=== PATIENT | male | born 1960 | race Caucasian/White ===

== ENCOUNTER → 2017-11-08 | Outpatient (CLI) | payer OTHER ==
[2017-11-08 18:42] LABS: CHOLESTEROL/HDL RATIO 2.9
== END | disposition home or self-care (01) ==
LOC: C.LAB 16:58
PROVIDERS: ATTEND Psychiatry & Neurology Psychiatry
DX: F20.0 Paranoid schizophrenia (principal); Z79.899 Other long term (current) drug therapy

== ENCOUNTER 2018-03-29 16:07 | Emergency (ER) | payer OTHER ==
[2018-03-29] VITALS (10 sets, daily range): BP systolic 107–130; BP diastolic 60–82; PULSE 75–93; TEMP 36.7–37.1; O2SAT 95–97; Ht 175.3 cm; Wt 82.8 kg
[~2018-03-29] VITALS: Ht 175.3 cm; Wt 82.8 kg
--- NOTE | 2018-03-29 16:43 | EMERGENCY ROOM VISIT NOTE ---
History Report prepared by Shabnam: Jackie Gunter Under the Supervision of: Vick GutierrezO. First contact with patient: 16:23 Chief Complaint: OTHER COMPLAINT Stated Complaint: SWELLING TO FEET, ABNORMAL LABS History of Present Illness The patient is a 57 year old male who presents to the Emergency Room with complaints of persistent abnormal labs that started earlier today. He notes he saw his doctor and had blood work done. He reports he was told that his labs were abnormal so he came here. He also reports intermittent lower extremity edema that started 1 year ago. It has been more persistent that past 2-3 weeks. The patient reports he also has shortness of breath on exertion that started 1 month ago. The patient is anemic. He denies any black stool but he states it has been darker. He reports he has been taking iron supplements. The patient has a history of paranoid schizophrenia, OCD, and depression. He notes he was a previous smoker and he drinks alcohol on occasion. Source of History: patient Onset: earlier today Position: other (abnomal labs) Timing: other (persistent) Associated Symptoms: + SOB Note: Additional symptoms: lower extremity edema, darker stools. Review of Systems See HPI for pertinent positives & negatives. A total of 10 systems reviewed and were otherwise negative. Past Medical & Surgical Medical Problems: (1) Paranoid schizophrenia Family History No pertinent family history Social History Drug Use: none Marital Status: single Current/Historical Medications Scheduled Aripiprazole (Abilify), 1 TAB PO DAILY Ascorbic Acid (Vitamin C), 1 TAB PO DAILY Bupropion (Wellbutrin Sr), 150 MG PO DAILY Ferrous Sulfate (Iron), 1 TAB PO DAILY Fluvoxamine Maleate (Luvox), 50 MG PO DAILY Multiple Vitamin (One-A-Day Mens), 1 TAB PO DAILY Allergies Coded Allergies: No Known Allergies (Unverified , 03/29/18) Physical Exam Vital Signs Date Time Temp Pulse Resp B/P (MAP) Pulse Ox O2 Delivery O2 Flow Rate FiO2 03/29/18 22:46 37.1 72 21 108/72 96 Room Air 03/29/18 22:35 36.7 75 16 117/75 97 03/29/18 22:05 37.0 88 20 115/82 96 03/29/18 21:35 36.9 83 20 107/69 95 03/29/18 21:21 37.0 87 18 108/64 96 Room Air 03/29/18 21:20 37.0 87 18 108/64 95 03/29/18 21:03 37.1 93 20 130/72 95 03/29/18 20:30 36.9 85 20 129/72 96 03/29/18 19:59 36.8 83 18 125/74 96 03/29/18 19:30 36.9 83 16 112/60 95 03/29/18 19:16 36.8 89 18 121/64 96 Room Air 03/29/18 19:15 36.8 89 18 121/64 96 03/29/18 19:01 36.8 88 19 118/69 95 03/29/18 18:27 95 Room Air 03/29/18 18:26 119/63 03/29/18 18:07 88 16 03/29/18 17:37 90 18 03/29/18 17:07 90 17 03/29/18 16:37 105 16 03/29/18 16:22 81 03/29/18 16:20 36.9 85 18 124/67 97 Room Air 03/29/18 16:11 124/67 Physical Exam CONSTITUTIONAL/VITAL SIGNS: Reviewed / noted above. GENERAL: Non-toxic in appearance. INTEGUMENTARY: Warm, dry, and pale, not pink. HEAD: Normocephalic. EYES: without scleral icterus or trauma. ENT/OROPHARYNX: clear and moist. LYMPHADENOPATHY/NECK: Is supple without lymphadenopathy or meningismus. RESPIRATORY: Lungs clear and equal. CARDIOVASCULAR: Regular rate and rhythm. GI/ABDOMEN: Soft and nontender. No organomegaly or pulsatile mass. No rebound or guarding. Normal bowel sounds. Stool is light brown, guaiac negative. EXTREMITIES: Warm and well perfused. BACK: No CVA tenderness. NEUROLOGICAL: Intact without focal deficits. PSYCHIATRIC: normal affect. MUSCULOSKELETAL: Normally developed with good muscle tone. Medical Decision & Procedures Laboratory Results 03/29/18 16:41 Red Blood Count 1.43, Mean Corpuscular Volume 102.1, Mean Corpuscular Hemoglobin 32.2, Mean Corpuscular Hemoglobin Concent 31.5, Mean Platelet Volume 9.8 03/29/18 16:41 Test 03/29/18 16:41 White Blood Count 10.31 K/uL (4.8-10.8) Red Blood Count 1.43 M/uL (4.7-6.1) Hemoglobin 4.6 g/dL (14.0-18.0) Hematocrit 14.6 % (42-52) Mean Corpuscular Volume 102.1 fL (80-100) Mean Corpuscular Hemoglobin 32.2 pg (25-34) Mean Corpuscular Hemoglobin Concent 31.5 g/dl (32-36) Platelet Count 21 K/uL (130-400) Mean Platelet Volume 9.8 fL (7.4-10.4) RDW Standard Deviation 91.5 fL (36.4-46.3) RDW Coefficient of Variation 24.8 % (11.5-14.5) Nucleated RBC Absolute Count (auto) 0.36 K/uL (0-0) Neutrophils % (Manual) 8.2 % Lymphocytes % (Manual) 63.6 % Variant Lymphocytes % (manual) 27.3 % Metamyelocytes % 0.9 % Nucleated Red Blood Cells % 3.5 % Neutrophils # (Manual) 0.85 K/uL (1.4-6.5) Total Absolute Neutrophils 0.85 K/uL (1.4-6.5) Lymphocytes # (Manual) 6.56 K/uL (1.2-3.4) Absolute Variant Lymphocytes 2.81 K/uL Total Absolute Lymphocytes 9.37 K/uL (1.2-3.4) Metamyelocytes # 0.09 K/uL (0-0) Blood Smear Review Platelet Estimate SIGNIFIC DECREASED Hypochromasia PRESENT Anisocytosis PRESENT Absolute Reticulocyte Count 0.04 10^6/uL (0.02-0.10) Percent Reticulocyte Count 2.6 % (0.5-2.0) Prothrombin Time 13.0 SECONDS (9.0-12.0) Prothromb Time International Ratio 1.2 (0.9-1.1) Activated Partial Thromboplast Time 29.6 SECONDS (21.0-31.0) Partial Thromboplastin Ratio 1.1 Fibrinogen 393 mg/dl (184-400) Anion Gap 8.0 mmol/L (3-11) Est Creatinine Clear Calc Drug Dose 86.6 ml/min Estimated GFR () 104.5 Estimated GFR (Non- 90.2 BUN/Creatinine Ratio 20.7 (10-20) Uric Acid 4.1 mg/dl (2.6-7.2) Calcium Level 8.0 mg/dl (8.5-10.1) Iron Level 114 mcg/dl (35-175) Total Iron Binding Capacity 378 mcg/dl (250-450) Transferrin 305 mg/dl (200-360) Transferrin % Saturation 27 % (20-50) Ferritin 198.1 ng/ml (8.0-388.0) Lactate Dehydrogenase 211 U/L (87-241) Troponin I < 0.015 ng/ml (0-0.045) Vitamin B12 Level 492 pg/mL (211-911) Folate 20.49 ng/mL (>5.38) Laboratory results as stated above per my review. Procedure Blood administration. ED Course 162: Previous medical records were reviewed. The patient was evaluated in room C9. A complete history and physical examination was performed. 163: The patient's lab results that were done earlier today are as follows: HGB: 4.6 MCV 105 MCHC 30.5 Platelet count: 24 Creatinine: 0.9 LFT: normal His EKG is as follows: Normal sinus, rate of 72, sinus arrhythmia, no ST elevation, no ectopy. 1700: The patient is receiving his blood transfusion. 1750: I spoke with STEPHANIE Palmer and she states she cannot take care of this here but she will evaluate the patient. She suggested the patient evaluated for further management at [place]. 1830: Discussed the patient's case with Dr. Qureshi. He will evaluate the patient for further treatment and disposition. Medical Decision Differential includes acute coronary syndrome, myocardial infarction, CVA, TIA, anemia, infection, pneumonia, UTI, pyelonephritis, poor nutrition, dehydration, electrolyte disturbance,hypoglycemia. This is a 57-year-old male who presents to the ED with a chief complaint of lower extremity edema for about 1 year and shortness of breath with exertion for about 1 month. The patient has a history of paranoid schizophrenia, depression and obsessive-compulsive disorder. He states that he has noticed recently that he has been having increased bleeding with shaving. The patient also has reported to take iron because he thought he might be anemic. The patient saw his PCP today and had some blood work as an outpatient that revealed a hemoglobin of 4.6. The patient was sent here for further evaluation and care. The patient's exam reveals that he is pale but otherwise he has no significant findings. His stool was guaiac negative and light brown. The patient was initially being evaluated by the medicine service. 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 Because of this, the cna pct spoke with Dr. Corona the viscose cellar charge hand. He was felt to require transfer for treatment as we do not have the capabilities to treat this here. I spoke with Dr. Qureshi from the medicine service at [place] who accepted the patient in transfer. The patient did receive 2 units of irradiated packed RBCs prior to transfer. The patient is asymptomatic at rest. His vital signs are stable. He will be transported by ambulance to [facility] in [place]. He was given some Tylenol p.o. and Zofran IV here. Medication Reconcilliation Current Medication List: was personally reviewed by me Consults Time Called: 1735 Consulting Physician: STEPHANIE Palmer Returned Call: 1750 I spoke with STEPHANIE Palmer and she states she cannot take care of this here but she will evaluate the patient. She suggested the patient evaluated for further management at [place]. Additional Consults: Time Called: 1825 Consulted Physician: Dr. Qureshi Returned Call: 1830 Additional Comments: Discussed the patient's case with Dr. Qureshi. He will evaluate the patient for further treatment and disposition. Impression Primary Impression: Severe anemia Critical Care I have personally spent 30 minutes of critical care time in the direct management of this patient. This includes bedside care, interpretation of diagnostic studies, and testing, discussion with consultants, patient, and family members, and other required patient management activities. Scribe Attestation The scribe's documentation has been prepared under my direction and personally reviewed by me in its entirety. I confirm that the note above accurately reflects all work, treatment, procedures, and medical decision making performed by me. Departure Information Dispostion Being Evaluated By Hospitalist Referrals Boris Santa III, M.D. (PCP) Patient Instructions My [facility]
[2018-03-29 17:08] LABS: HEMATOCRIT 14.6 % (42-52); HEMOGLOBIN 4.6 g/dL (14.0-18.0); MEAN CELL VOLUME 102.1 fL (80-100); MEAN CORPUSCULAR HEMOGLOBIN 32.2 pg (25-34); MEAN CORPUSCULAR HGB CONC 31.5 g/dl (32-36); MEAN PLATELET VOLUME 9.8 fL (7.4-10.4); NUCLEATED RED BLOOD CELL ABS 0.36 K/uL (0-0); PLATELET COUNT 21 K/uL (130-400); RED CELL DISTRIBUTION WIDTH CV 24.8 % (11.5-14.5); RED CELL DISTRIBUTION WIDTH SD 91.5 fL (36.4-46.3); WHITE BLOOD COUNT 10.31 K/uL (4.8-10.8)
[2018-03-29 17:16] LABS: RETIC COUNT % 2.6 % (0.5-2.0)
[2018-03-29] MEDS ORDERED: ACETAMINOPHEN 325 MG TAB PO PRN (17:30)
[2018-03-29] MEDS ORDERED: ONDANSETRON INJ 2 MG/ML 2 ML VIAL IV PRN (17:30)
[2018-03-29] MEDS ORDERED: BUPR-79 PO (17:32)
[2018-03-29] MEDS ORDERED: FLUV50TA3 PO (17:32)
[2018-03-29] MEDS ORDERED: ASCO500T3 PO (17:37)
[2018-03-29] MEDS ORDERED: ZINC1TAB PO (17:37)
[2018-03-29] MEDS ORDERED: FERR1TAB23 PO (17:37)
[2018-03-29] MEDS ORDERED: MULT-513 PO (17:37)
[2018-03-29] MEDS ORDERED: PATIENT'S ALLERGY INFO NEEDS ENTERED SCH (17:45)
[2018-03-29 18:22] LABS: CREATININE 0.93 mg/dl (0.60-1.40); POTASSIUM 4.1 mmol/L (3.5-5.1)
[2018-03-29] MEDS ORDERED: MULT-164 PO (18:43)
[2018-03-29] MEDS ORDERED: ABL/5 PO (18:43)
--- NOTE | 2018-03-29 18:50 | Medical Consult ---
Consultation Date of Consultation: March 29, 2018. Attending Physician: Dr. Claudio Reason for Consultation: Anemia History of Present Illness 57-year-old male who was referred to the ED by his PCP for evaluation of anemia. Patient reports he has noticed easy bruising and bleeding for the past several months. He notes bleeding gums and prolonged bleeding after a small cut when shaving. Couple of times he noted bright red bleeding per rectum. He has been increasingly fatigued. During the past 2 weeks, he has noted shortness of breath with exertion up a hill. He has had lightheadedness and dizziness but denies any syncopal event. He denies chest pain. No abdominal pain, nausea, vomiting, or diarrhea. He denies fever and chills. No urinary symptoms. Patient presented to his PCP today who ordered outpatient labs that show profound anemia and thrombocytopenia. Patient was referred to the ER for further evaluation. In the ED, patient's hemoglobin is 4.6 and platelet count is 21K. There is concern for hairy cells on his differential as well. He is hemodynamically stable. Past Medical/Surgical History Medical Problems: (1) Paranoid schizophrenia Status: Chronic Social History Smoking Status: Former Smoker Alcohol Use: 4 drinks/week Drug Use: none Allergies Coded Allergies: No Known Allergies (Unverified , 03/29/18) Home Medications Zinc (Zinc Gluconate) Unknown Strength Tab 1 Tab PO DAILY Iron (Ferrous Sulfate) Unknown Strength Tab 1 Tab PO DAILY Vitamin C (Ascorbic Acid) Unknown Strength Tab 1 Tab PO DAILY Mvi With Minerals (Multivitamins/Minerals) Tab 1 Tab PO DAILY Wellbutrin Sr (Bupropion HCl) 150 Mg Ertab 150 Mg PO DAILY Luvox (Fluvoxamine Maleate) 50 Mg Tab 50 Mg PO DAILY Current Inpatient Medications Current Inpatient Medications Medications (Trade) Dose Ordered Sig/Gale Route Start Time Stop Time Status Last Admin Dose Admin Acetaminophen (Tylenol Tab) 650 mg Q4H PRN PO 03/29/18 17:30 04/28/18 17:29 UNV Ondansetron HCl (Zofran Inj) 4 mg Q6H PRN IV 03/29/18 17:30 04/28/18 17:29 UNV Miscellaneous Information (Patient'S Allergy Info Needs Entered) 1 ea Q30M N/A 03/29/18 17:45 04/28/18 17:44 Review of Systems ROS per HPI, all other systems reviewed and negative Physical Exam Date Time Temp Pulse Resp B/P (MAP) Pulse Ox O2 Delivery O2 Flow Rate FiO2 03/29/18 18:27 95 Room Air 03/29/18 18:26 119/63 03/29/18 18:07 88 16 03/29/18 17:37 90 18 03/29/18 17:07 90 17 03/29/18 16:37 105 16 03/29/18 16:22 81 03/29/18 16:20 36.9 85 18 124/67 97 Room Air 03/29/18 16:11 124/67 General Appearance: WD/WN, no apparent distress Head: normocephalic, atraumatic Eyes: normal inspection, EOMI, sclerae normal ENT: hearing grossly normal, + pertinent finding (Mucous membranes moist) Neck: supple, no JVD, trachea midline Respiratory/Chest: lungs clear, normal breath sounds, no respiratory distress Cardiovascular: regular rate, rhythm, no edema, normal peripheral pulses Abdomen/GI: normal bowel sounds, non tender, soft, no organomegaly Extremities/Musculoskelatal: normal inspection, no calf tenderness, normal capillary refill Neurologic/Psych: no motor/sensory deficits, alert, normal mood/affect, oriented x 3 Skin: warm/dry, + pallor Laboratory Results Last 24 Hours Test 03/29/18 16:41 White Blood Count 10.31 K/uL Red Blood Count 1.43 M/uL Hemoglobin 4.6 g/dL Hematocrit 14.6 % Mean Corpuscular Volume 102.1 fL Mean Corpuscular Hemoglobin 32.2 pg Mean Corpuscular Hemoglobin Concent 31.5 g/dl Platelet Count 21 K/uL Mean Platelet Volume 9.8 fL RDW Standard Deviation 91.5 fL RDW Coefficient of Variation 24.8 % Nucleated RBC Absolute Count (auto) 0.36 K/uL Neutrophils % (Manual) 8.2 % Lymphocytes % (Manual) 63.6 % Variant Lymphocytes % (manual) 27.3 % Metamyelocytes % 0.9 % Nucleated Red Blood Cells % 3.5 % Neutrophils # (Manual) 0.85 K/uL Total Absolute Neutrophils 0.85 K/uL Lymphocytes # (Manual) 6.56 K/uL Absolute Variant Lymphocytes 2.81 K/uL Total Absolute Lymphocytes 9.37 K/uL Metamyelocytes # 0.09 K/uL Platelet Estimate SIGNIFIC DECREASED Hypochromasia PRESENT Anisocytosis PRESENT Absolute Reticulocyte Count 0.04 10^6/uL Percent Reticulocyte Count 2.6 % Sodium Level 139 mmol/L Potassium Level 4.1 mmol/L Chloride Level 107 mmol/L Carbon Dioxide Level 24 mmol/L Anion Gap 8.0 mmol/L Blood Urea Nitrogen 19 mg/dl Creatinine 0.93 mg/dl Est Creatinine Clear Calc Drug Dose 86.6 ml/min Estimated GFR () 104.5 Estimated GFR (Non- 90.2 BUN/Creatinine Ratio 20.7 Random Glucose 93 mg/dl Calcium Level 8.0 mg/dl Iron Level 114 mcg/dl Total Iron Binding Capacity 378 mcg/dl Transferrin 305 mg/dl Transferrin % Saturation 27 % Ferritin 198.1 ng/ml Troponin I < 0.015 ng/ml Vitamin B12 Level 492 pg/mL Folate 20.49 ng/mL Assessment & Plan Patient was seen and examined in the ED. Patient presenting with easy bruising, prolonged bleeding, exertional shortness of breath. Outpatient labs demonstrated profound anemia and thrombocytopenia. Patient was referred to the ER for further evaluation. In the ED, hemoglobin 4.6, platelet count is 21K, and ANC 0.85. There are not any blast cells noted on the CBC however cardiac cath lab manager is concerned for possible hairy cells. This cannot be confirmed until pathologist is available in the morning to read the peripheral smear. Case was discussed with Dr. Corona, who advises patient be transferred to [facility] for further treatment. Patient has been typed and crossed for irradiated blood products and will begin transfusion at [facility]. Case was discussed with Dr. Almanza who will arrange for transfer. 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 Corona consulted Recommends patient needs to be transferred to higher level of care/tertiary center for in intensive inpatient chemo therapywhich is not available at [facility] ER physician updated Patient will be transferred to [facility] from [facility] ER Iqra Claudio MD
[2018-03-29 18:57] LABS: INR 1.2 (0.9-1.1); PTT PATIENT 29.6 SECONDS (21.0-31.0)
[2018-03-30 00:14] VITALS: BP 128/70; PULSE 85; TEMP 37.1; O2SAT 97
[2018-03-30] MEDS ORDERED: ARIPIprazole TAB 5 MG TAB PO ONE (00:15)
[2018-03-30] MEDS ORDERED: FLUVOXAMINE MALEATE 50 MG TAB PO SCH (21:00)
== END 2018-03-30 00:27 | disposition short-term general hospital (02) ==
LOC: EDBD 16:07 → C.EDC 16:08 → ENRESERV 17:52 → CANRESERV 17:52 → CANBEDREQ 20:21 → C.EDC 03-30 00:27
DX: D64.9 Anemia, unspecified (principal); F20.0 Paranoid schizophrenia